=== PATIENT | female | born 1965 | race Two or more races ===

== ENCOUNTER → 2016-12-04 | Outpatient (CLI) | payer OTHER | END | disposition short-term general hospital (02) | LOC: CLORTH 09:57 | DX: M17.0 Bilateral primary osteoarthritis of knee (principal); E66.9 Obesity, unspecified | CPT/HCPCS: J1100; J2795 ==

== ENCOUNTER → 2016-12-26 | Outpatient (CLI) | payer OTHER | END | disposition short-term general hospital (02) | LOC: CLVASC 01:29 | DX: I83.92 Asymptomatic varicose veins of left lower extremity (principal) ==